=== PATIENT | female | born 1985 | race American Indian/Alaskan Native ===

== ENCOUNTER 2018-01-16 20:04 | Observation (INO) | payer BC, OTHER ==
--- NOTE | 2018-01-16 21:11 | ED PDOC ---
Arrival/HPI - General Chief Complaint: Dizziness/Lightheaded Time Seen by Provider: 01/16/18 20:28 Historian: Patient - History of Present Illness Narrative History of Present Illness (Text): 01/16/18 21:05 A 32 year old female, whose past medical history includes anxiety, presents to the emergency department with a complaint of cramping sensation in her hands and joints this evening. The patient states that she was not sure if she was having a panic attack. The patient notes that she has been loosing weight over the past year. She is currently not on any medication and denies drug or alcohol use. She notes that she has not seen her PMD regarding her symptoms. the patient denies fever, chills, headache, dizziness, chest pain, shortness of breath, nausea, vomiting, diarrhea, abdominal pain, back pain, neck pain, or any other complaint. Time/Duration: Prior to Arrival Symptom Onset: Sudden Symptom Course: Improving Activities at Onset: Rest, Light Context: Home Past Medical History - Provider Review Nursing Documentation Reviewed: Yes - Infectious Disease Hx of Infectious Diseases: None - Past Medical History Past Medical History: No Previous - Cardiac Hx Cardiac Disorders: No - Pulmonary Hx Respiratory Disorders: No - Neurological Hx Neurological Disorder: No - HEENT Hx HEENT Disorder: No - Renal Hx Renal Disorder: No - Endocrine/Metabolic Hx Endocrine Disorders: No - Hematological/Oncological Hx Blood Disorders: No - Integumentary Hx Dermatological Disorder: No - Musculoskeletal/Rheumatological Hx Musculoskeletal Disorders: No - Gastrointestinal Hx Gastrointestinal Disorders: No - Genitourinary/Gynecological Hx Genitourinary Disorders: No - Psychiatric Hx Psychophysiologic Disorder: Yes Hx Anxiety: Yes Hx Substance Use: No - Past Surgical History Past Surgical History: No Previous - Surgical History Other/Comment: Fallopian tubes removed - Anesthesia Hx Anesthesia: Yes Hx Anesthesia Reactions: No Hx Malignant Hyperthermia: No - Suicidal Assessment Feels Threatened In Home Enviroment: No Family/Social History - Physician Review Nursing Documentation Reviewed: Yes Family/Social History: No Known Family HX Smoking Status: Never Smoked Hx Alcohol Use: Yes Hx Substance Use: No Hx Substance Use Treatment: No Allergies/Home Meds Allergies/Adverse Reactions: Allergies No Known Allergies Allergy (Verified 01/16/18 20:13) Home Medications: Home Meds Medication Instructions Recorded Confirmed No Known Home Med 01/16/18 01/16/18 Review of Systems - Physician Review All systems were reviewed & negative as marked: Yes - Review of Systems Constitutional: absent: Fevers, Night Sweats Respiratory: absent: SOB Cardiovascular: absent: Chest Pain Gastrointestinal: absent: Abdominal Pain, Diarrhea, Nausea, Vomiting Musculoskeletal: Other (Cramping sensation of hands). absent: Back Pain, Neck Pain Neurological: absent: Headache Psychiatric: Anxiety Physical Exam Vital Signs Reviewed: Yes Vital Signs Temp Pulse Resp BP Pulse Ox 01/16/18 20:11 97.8 F 102 H 18 142/99 H 98 Temperature: Afebrile Blood Pressure: Hypertensive Pulse: Tachycardic Respiratory Rate: Normal Appearance: Positive for: Well-Appearing, Non-Toxic, Comfortable Pain Distress: None Mental Status: Positive for: Alert and Oriented X 3, other (Anxious) - Systems Exam Head: Present: Atraumatic, Normocephalic Pupils: Present: PERRL Extroacular Muscles: Present: EOMI Conjunctiva: Present: Normal Mouth: Present: Moist Mucous Membranes Neck: Present: Normal Range of Motion Respiratory/Chest: Present: Clear to Auscultation, Good Air Exchange. No: Respiratory Distress, Accessory Muscle Use Cardiovascular: Present: Regular Rate and Rhythm, Normal S1, S2. No: Murmurs Abdomen: No: Tenderness, Distention, Peritoneal Signs Back: Present: Normal Inspection Upper Extremity: Present: Normal Inspection. No: Cyanosis, Edema Lower Extremity: Present: Normal Inspection. No: Edema Neurological: Present: GCS=15, CN II-XII Intact, Speech Normal Skin: Present: Warm, Dry, Normal Color. No: Rashes Psychiatric: Present: Alert, Oriented x 3, Normal Insight, Normal Concentration , Anxious Medical Decision Making ED Course and Treatment: 01/16/18 21:12 Impression: A 32 year old female presents to the emergency department with a complaint of cramping sensation in her hands. Plan: -- Labs -- Reassess and disposition Progress Notes: 01/16/18 22:14: Patient's chemistry shows a Potassium of 2.6 01/16/18 22:39: Case discussed with medical claims analyst and Dr. Ellington who accepts patient to the hospitalist's service. 01/17/18 00:18 EKG: Ordered, reviewed, and independently interpreted the EKG. Rate : 109 BPM Rhythm : Sinus Tachycardia Interpretation : No acute changes - Lab Interpretations Lab Results: 01/16/18 21:27 01/16/18 22:10 Lab Results 01/16/18 22:10: Alcohol, Quantitative < 10 01/16/18 22:10: Phosphorus 2.5, Magnesium 1.1 L 01/16/18 22:10: Potassium 2.8 L* 01/16/18 21:27: WBC 7.1, RBC 3.07 L, Hgb 11.1 L, Hct 31.7 L, MCV 103.3, MCH 36.2 H, MCHC 35.0, RDW 16.9 H, Plt Count 399, MPV 9.3 01/16/18 21:27: Sodium 138, Potassium 2.6 L*, Chloride 99, Carbon Dioxide 28, Anion Gap 14, BUN 6 L, Creatinine 0.5 L, Est GFR ( Amer) > 60, Est GFR ( Non-Af Amer) > 60, Random Glucose 103, Calcium 7.5 L, Total Bilirubin 0.7, AST 306 H, ALT 63 H, Alkaline Phosphatase 98, Total Protein 7.2, Albumin 4.1, Globulin 3.1, Albumin/Globulin Ratio 1.3 I have reviewed the lab results: Yes - RAD Interpretation Radiology Orders: 01/16/18 22:08 CHEST PORTABLE [RAD] Stat - Medication Orders Current Medication Orders: Magnesium 2 gm/50 ml NS (Magnesium Sulfate 2 Gm/50 Ml Ns) 2 gm in 50 mls @ 50 mls/hr IVPB ONCE ONE Stop: 01/17/18 00:47 Discontinued Medications Alprazolam (Xanax) 0.25 mg PO ONCE ONE Stop: 01/16/18 21:17 Last Admin: 01/16/18 21:54 Dose: 0.25 mg Calcium Gluconate (Calcium Gluconate Iv) 1,000 mg IVP ONCE ONE Stop: 01/16/18 22:46 Last Admin: 01/16/18 23:21 Dose: 1,000 mg IVP Administration Document 01/16/18 23:21 SS (Rec: 01/16/18 23:21 SS [id number]) Charges for Administration # of IVP Administrations 1 Potassium Chloride (Potassium Chloride 20 Meq/100 Ml) 100 mls @ 50 mls/hr IV ONCE ONE Stop: 01/17/18 00:07 Last Admin: 07/24/18 23:46 Dose: 50 mls/hr eMAR Start Stop Document 01/16/18 23:46 SS (Rec: 01/16/18 23:46 SS [id number]) Intravenous Solution Start Date 01/16/18 Start Time 23:46 Potassium Chloride (K-Dur 20 Meq Er Tab) 40 meq PO STAT STA Stop: 01/16/18 22:09 Last Admin: 01/16/18 22:25 Dose: 40 meq - Scribe Statement The provider has reviewed the documentation as recorded by the Nathanibe Jeannette Bro Provider Scribe Attestation: All medical record entries made by the Scribe were at my direction and personally dictated by me. I have reviewed the chart and agree that the record accurately reflects my personal performance of the history, physical exam, medical decision making, and the department course for this patient. I have also personally directed, reviewed, and agree with the discharge instructions and disposition. Disposition/Present on Arrival - Present on Arrival Any Indicators Present on Arrival: No History of DVT/PE: No History of Uncontrolled Diabetes: No Urinary Catheter: No History of Decub. Ulcer: No History Surgical Site Infection Following: None - Disposition Have Diagnosis and Disposition been Completed?: Yes Diagnosis: Hypokalemia, Weight loss Disposition: HOSPITALIZED Disposition Time: 22:48 Patient Problems: Current Active Problems Problem Status Onset Hypokalemia Acute Weight loss Acute Condition: STABLE
[2018-01-16 21:43] LABS: HEMOGLOBIN 11.1 g/dL (12.0-16.0); MEAN CELL VOLUME 103.3 fl (80.0-105.0); MEAN CORPUSCULAR HEMOGLOBIN 36.2 pg (25.0-35.0); MEAN PLATELET VOLUME 9.3 fl (7.0-11.0); RBC 3.07 10^6/uL (3.5-6.1); RED CELL DISTRIBUTION WIDTH 16.9 % (11.5-14.5); WHITE BLOOD COUNT 7.1 10^3/ul (4.5-11.0)
[2018-01-16 22:06] LABS: ALB/GLOB RATIO 1.3 (1.1-1.8); ALBUMIN 4.1 g/dL (3.0-4.8); ALT/SGPT 63 U/L (7-56); AST/SGOT 306 U/L (14-36); BLOOD UREA NITROGEN 6 mg/dL (7-21); CALCIUM 7.5 mg/dL (8.4-10.5); GFR AFRICAN-AMERICAN > 60; GFR NON-AFRICAN AMERICAN > 60
[2018-01-16] MEDS ORDERED: Potassium Chloride 20 mEq ER Tab PO STA (22:08)
[2018-01-16] MEDS ORDERED: Potassium Chloride 20 mEq 100 ML IV ONE (22:08)
[2018-01-16 23:32] LABS: URINE BILIRUBIN NEGATIVE (NEGATIVE); URINE BLOOD NEGATIVE (NEGATIVE); URINE GLUCOSE (UA) NEGATIVE (NEGATIVE); URINE LEUKOCYTE ESTERASE NEGATIVE Leu/uL (NEGATIVE); URINE PROTEIN 100 mg/dL (<30 mg/dL)
[2018-01-16 23:45] LABS: URINE APPEARANCE CLEAR (CLEAR); URINE COLOR YELLOW (YELLOW)
[2018-01-16] MEDS ORDERED: Magnesium 2 gm/50 ml NS 2 GM/50 ML BAG IVPB ONE (23:48)
[2018-01-17] LABS: BARBITURATES, UR NEGATIVE (NEGATIVE); BENZODIAZEPINES, UR NEGATIVE (NEGATIVE); OPIATES, UR NEGATIVE (NEGATIVE); PHENCYCLIDINE, UR NEGATIVE (NEGATIVE)
[2018-01-17 00:08] LABS: URINE RBC NEGATIVE /hpf (0-2); URINE WBC NEGATIVE /hpf (0-6)
[2018-01-17 00:10] LABS: URINE BACTERIA FEW (NEG); URINE HYALINE CAST 0 - 2 /hpf
[2018-01-17 01:47] VITALS: BMI 74717.1
--- NOTE | 2018-01-17 04:49 | CP.PCM.HP ---
<Jossue Rain - Last Filed: 01/17/18 06:01> History of Present Illness - History of Present Illness History of Present Illness: Jossue Rain DO PGY1 Internal Medicine Communication Professor - Hospital H&P CC: Panic attack w/ hand contracture; Lab abnormalities; Weight Loss 32F no significant PMH presents w/ presents to [facility] [place] with chief complaint of BL contractions of hands following panic attack; found to have CMP abnormalities on evaluation as well as 65LB wt loss over 1yr. Pt. reported having panic attack w/ SOB, hyperventilation & diaphoresis today and subsequently lost ability to open her hands bilaterally. Contractures lasted 15 min resolved prior to EMS arrival. Pt. states she has had panic attacks before however, she has not had any physical contracture; often controls her panic attacks w/o medication. Upon arrival to ED pt was found to be hypokalemic and hypocalcemic. Upon ROS pt. reported she has had some wt loss from 198-166 over the past year. She reports it was initially intentional however now it is not. She reports months of loose stools; non tarry w/o hematochezia. She does report irregular period over the past 4 years s/p D&C after miscarriage. Denies any hx of DVT or PE, denies any use of control, denies any myalgias, fever, chills, chest pain, palpitations, abd pain, N/V/C, dysuria/hematuria. Remainder of 12 system ROS was otherwise negative. PMD: none Home Rx: none PMH: none PSH: D&C 2013 Social: Drinks 1 mixed drink / daily; Nonsmoker; Denies illicit drug use In ED pt. repleated K+ w/ 60meq EKG wnl given 0.25 xanax x1 In and out of tachycardia in 100-1110 Present on Admission - Present on Admission Any Indicators Present on Admission: No Review of Systems - Review of Systems All systems: reviewed and no additional remarkable complaints except Review of Systems: as per HPI Past Patient History - Infectious Disease Hx of Infectious Diseases: None - Past Social History Smoking Status: Never Smoked - CARDIAC Hx Cardiac Disorders: No - PULMONARY Hx Respiratory Disorders: No - NEUROLOGICAL Hx Neurological Disorder: No - HEENT Hx HEENT Problems: No - RENAL Hx Chronic Kidney Disease: No - ENDOCRINE/METABOLIC Hx Endocrine Disorders: No - HEMATOLOGICAL/ONCOLOGICAL Hx Blood Disorders: No - INTEGUMENTARY Hx Dermatological Problems: No - MUSCULOSKELETAL/RHEUMATOLOGICAL Hx Falls: No - GASTROINTESTINAL Hx Gastrointestinal Disorders: No - GENITOURINARY/GYNECOLOGICAL Hx Genitourinary Disorders: No - PSYCHIATRIC Hx Anxiety: Yes Hx Substance Use: No - SURGICAL HISTORY Other/Comment: fallopian tubes removed - ANESTHESIA Hx Anesthesia: Yes Hx Anesthesia Reactions: No Hx Malignant Hyperthermia: No Meds Allergies/Adverse Reactions: Allergies Allergy/AdvReac Type Severity Reaction Status Date / Time No Known Allergies Allergy Verified 01/16/18 20:13 Physical Exam - Constitutional Appears: Well, Non-toxic, No Acute Distress - Head Exam Head Exam: ATRAUMATIC, NORMOCEPHALIC - Eye Exam Eye Exam: EOMI, PERRL - ENT Exam ENT Exam: Mucous Membranes Moist - Neck Exam Neck exam: Positive for: Normal Inspection - Respiratory Exam Respiratory Exam: Clear to Auscultation Bilateral, Rhonchi, Wheezes, NORMAL BREATHING PATTERN. absent: Respiratory Distress - Cardiovascular Exam Cardiovascular Exam: RRR, +S1, +S2 - GI/Abdominal Exam GI & Abdominal Exam: Normal Bowel Sounds, Soft. absent: Tenderness - Extremities Exam Extremities exam: Positive for: pedal pulses present. Negative for: pedal edema - Back Exam Back exam: absent: CVA tenderness (L), CVA tenderness (R) - Neurological Exam Neurological exam: Alert, CN II-XII Intact, Oriented x3 - Psychiatric Exam Psychiatric exam: Normal Affect, Normal Mood - Skin Skin Exam: Dry, Intact, Normal Color, Warm Results - Vital Signs Recent Vital Signs: Last Vital Signs Temp 98.9 F 01/17/18 01:39 Pulse 110 H 01/17/18 01:49 Resp 19 01/17/18 01:39 BP 134/87 01/17/18 01:39 Pulse Ox 98 01/17/18 00:20 - Labs Result Diagrams: 01/16/18 21:27 01/16/18 22:10 Labs: Laboratory Results - last 24 hr 01/16/18 01/16/18 23:15 23:15 Urine Color Yellow Urine Appearance Clear Urine pH 7.0 Ur Specific [place] 1.010 Urine Protein 100 H Urine Glucose (UA) Negative Urine Ketones Negative Urine Blood Negative Urine Nitrate Negative Urine Bilirubin Negative Urine Urobilinogen 1.0 H Ur Leukocyte Esterase Negative Urine RBC Negative Urine WBC Negative Ur Epithelial Cells 4 - 5 Urine Bacteria Few Hyaline Casts 0 - 2 Urine Other Mucus Urine Opiates Screen Negative Urine Methadone Screen Negative Ur Barbiturates Screen Negative Ur Phencyclidine Scrn Negative Ur Amphetamines Screen Negative U Benzodiazepines Scrn Negative U Oth Cocaine Metabols Negative U Cannabinoids Screen Negative Assessment & Plan - Assessment and Plan (Free Text) Assessment: 32F no significant PMH presents w/ chief complaint of BL contractions of hands following panic attack; found to have CMP abnormalities on evaluation as well as 65LB wt loss over 1yr. Hypokalemia 2.6 on admission given 60 meq in ED Reassess in AM Magnesium low as well Hypomagnesia 1.1 on admission Repleated w/ 2gm IVPB Reassess in AM Hypocalcemia 7.5 on admission Phos level wnl Ca Gluconate 1gm given Reassess in AM Consider hypocalcemia workup if unimproving (PTH, VitD, Renal function) Normocytic anemia Hb 11.1, MCV 103; upper limit normal Follow up Fe, TIBC, B12 level, Folate, Reticulocyte Count, Asymptomatic, hemodynamically stable, no complaints at this time Transaminitis AST:ALT 306:63; Social Hx + for daily EtOH use Abd U/s pending Hepatitis panel pending Hx EtOH Abuse CIWA Ativan 1mg Q6H Started Thiamine, Folate, Multivit Unintentional weight loss: HIV Fecal Leukocyte TSH GI/DVT PPX - Protonix / SCD Pt. seen, examined, and discussed w/ attending physician Dr. Chandana Rain DO - PGY1 Internal Medicine Communication Professor - Date & Time Date: 01/17/18 Time: 05:05 <Jahaira Ellington - Last Filed: 01/17/18 06:36> Results - Vital Signs Recent Vital Signs: Last Vital Signs Temp 98.9 F 01/17/18 01:39 Pulse 97 H 01/17/18 06:00 Resp 19 01/17/18 01:39 BP 134/87 01/17/18 01:39 Pulse Ox 98 01/17/18 00:20 - Labs Result Diagrams: 01/16/18 21:27 01/16/18 22:10 Labs: Laboratory Results - last 24 hr 01/16/18 01/16/18 23:15 23:15 Urine Color Yellow Urine Appearance Clear Urine pH 7.0 Ur Specific [place] 1.010 Urine Protein 100 H Urine Glucose (UA) Negative Urine Ketones Negative Urine Blood Negative Urine Nitrate Negative Urine Bilirubin Negative Urine Urobilinogen 1.0 H Ur Leukocyte Esterase Negative Urine RBC Negative Urine WBC Negative Ur Epithelial Cells 4 - 5 Urine Bacteria Few Hyaline Casts 0 - 2 Urine Other Mucus Urine Opiates Screen Negative Urine Methadone Screen Negative Ur Barbiturates Screen Negative Ur Phencyclidine Scrn Negative Ur Amphetamines Screen Negative U Benzodiazepines Scrn Negative U Oth Cocaine Metabols Negative U Cannabinoids Screen Negative Attending/Attestation - Attestation I have personally seen and examined this patient.: Yes I have fully participated in the care of the patient.: Yes I have reviewed all pertinent clinical information: Yes Notes (Text): 01/17/18 06:32 On Auscultation, pt's lungs are clear..No wheezes or rhonchi heard as noted in the physical exam. Agree with the rest of the documentation and plan of care.
[2018-01-17] MEDS: Pantoprazole 40 mg EC Tab PO SCH (06:13)
[2018-01-17 06:36] LABS: BASO # 0.01 K/mm3 (0.0-2.0); BASO % 0.1 % (0.0-3.0); EOS # 0.1 (0.0-0.7); EOS % 1.2 % (1.5-5.0); GRAN # 3.52 (1.4-6.5); GRAN % 52.7 % (50.0-68.0); HEMOGLOBIN 10.2 g/dL (12.0-16.0); LYMPH # 2.7 (1.2-3.4); LYMPH % 40.5 % (22.0-35.0); MEAN CELL VOLUME 104.9 fl (80.0-105.0); MEAN CORPUSCULAR HEMOGLOBIN 35.5 pg (25.0-35.0); MEAN CORPUSCULAR HGB CONC 33.9 g/dl (31.0-37.0); MEAN PLATELET VOLUME 9.3 fl (7.0-11.0); MONO # 0.4 (0.1-0.6); MONO % 5.5 % (1.0-6.0); PLATELET COUNT 366 10^3/uL (120.0-450.0); RBC 2.87 10^6/uL (3.5-6.1); RED CELL DISTRIBUTION WIDTH 16.8 % (11.5-14.5); WHITE BLOOD COUNT 6.7 10^3/ul (4.5-11.0)
[2018-01-17 06:45] LABS: IRON 164 ug/dL (45-180)
[2018-01-17 06:55] LABS: % IRON SATURATION 77 % (20-55); TOTAL IRON BINDING CAPACITY 214 ug/dL (265-497)
[2018-01-17 06:57] LABS: ALB/GLOB RATIO 1.1 (1.1-1.8); ALBUMIN 3.4 g/dL (3.0-4.8); ALT/SGPT 58 U/L (7-56); AST/SGOT 253 U/L (14-36); BLOOD UREA NITROGEN 4 mg/dL (7-21); GFR AFRICAN-AMERICAN > 60; GFR NON-AFRICAN AMERICAN > 60
[2018-01-17] MEDS ORDERED: Potassium Chloride 20 mEq ER Tab PO STA ×2 (07:13→11:19)
[2018-01-17] MEDS ORDERED: Magnesium 2 gm/50 ml NS 2 GM/50 ML BAG IVPB ONE (07:13)
--- NOTE | 2018-01-17 09:47 | RAD ---
Date of service: 01/16/2018 HISTORY: medical clearance COMPARISON: No prior. FINDINGS: LUNGS: No active pulmonary disease. PLEURA: No significant pleural effusion identified, no pneumothorax apparent. CARDIOVASCULAR: Normal. OSSEOUS STRUCTURES: No significant abnormalities. VISUALIZED UPPER ABDOMEN: Normal. OTHER FINDINGS: None. IMPRESSION: No active disease.
[2018-01-17] MEDS: Multivitamin With Minerals Tab PO SCH (11:20)
--- NOTE | 2018-01-17 11:29 | US ---
Date of service: 01/17/2018 HISTORY: weight loss, loss of appetite COMPARISON: None. TECHNIQUE: Sonographic evaluation of the abdomen. FINDINGS: LIVER: Measures 16.3 cm. Patent portal vein. Portal venous flow: Hepatopetal. Unremarkable echogenicity of the liver parenchyma. No mass. No intrahepatic bile duct dilatation. GALLBLADDER: Sludge identified layering in the gallbladder. No gallstones. COMMON BILE DUCT: Measures 4.2 mm. No stones. No dilatation. PANCREAS: Unremarkable as visualized. No mass. No ductal dilatation. RIGHT KIDNEY: Measures 4.3 x 9.7cm. Normal echogenicity. No calculus, mass, or hydronephrosis. LEFT KIDNEY: Measures 6.2 x 10.2 No significant or acute findings to account for/ related to the clinical presentation.cm. Normal echogenicity. No calculus, mass, or hydronephrosis. SPLEEN: Normal in size and contour. No mass. AORTA: No aneurysmal dilatation. IVC: Unremarkable. OTHER FINDINGS: None. IMPRESSION: No significant or acute findings to account for/ related to the clinical presentation. Additional benign and/or incidental findings described above.
[2018-01-17 12:15] LABS: HEPATITIS B SURFACE AG Negative (NEGATIVE)
[2018-01-17 12:21] LABS: HEPATITIS A IGM NEGATIVE (NEGATIVE); HEPATITIS B CORE AB NEGATIVE (NEGATIVE)
[2018-01-17 12:33] LABS: HEPATITIS C ANTIBODY NEGATIVE (NEGATIVE)
[2018-01-17 12:53] LABS: FOLATE 8.5 ng/mL
[2018-01-17 16:42] VITALS: RESP 20
--- NOTE | 2018-01-17 18:45 | CARD ---
APPROVED REPORT Date of service: 01/16/2018 EKG Measurement Heart [id number] <Conclusion> Sinus tachycardia Otherwise normal ECG
[2018-01-17 23:54] VITALS: O2SAT 100
[2018-01-18] MEDS: Pantoprazole 40 mg EC Tab PO SCH (05:23)
[2018-01-18 07:00] LABS: BASO # 0.01 K/mm3 (0.0-2.0); BASO % 0.2 % (0.0-3.0); EOS # 0.3 (0.0-0.7); EOS % 4.7 % (1.5-5.0); GRAN # 2.38 (1.4-6.5); GRAN % 41.8 % (50.0-68.0); LYMPH # 2.7 (1.2-3.4); LYMPH % 47.2 % (22.0-35.0); MEAN CELL VOLUME 106.8 fl (80.0-105.0); MEAN CORPUSCULAR HEMOGLOBIN 35.9 pg (25.0-35.0); MEAN CORPUSCULAR HGB CONC 33.6 g/dl (31.0-37.0); MEAN PLATELET VOLUME 9.4 fl (7.0-11.0); MONO # 0.4 (0.1-0.6); MONO % 6.1 % (1.0-6.0); RBC 2.51 10^6/uL (3.5-6.1); RED CELL DISTRIBUTION WIDTH 17.2 % (11.5-14.5); WHITE BLOOD COUNT 5.7 10^3/ul (4.5-11.0)
[2018-01-18] MEDS ORDERED: Ergocalciferol 50,000 Intl Units Cap PO SCH (07:00)
[2018-01-18 07:20] LABS: ALB/GLOB RATIO 1.1 (1.1-1.8); ALT/SGPT 42 U/L (7-56); AST/SGOT 95 U/L (14-36); BLOOD UREA NITROGEN 4 mg/dL (7-21); CALCIUM 7.5 mg/dL (8.4-10.5); GFR AFRICAN-AMERICAN > 60; GFR NON-AFRICAN AMERICAN > 60
[2018-01-18] MEDS: Multivitamin With Minerals Tab PO SCH (08:31)
--- NOTE | 2018-01-18 09:26 | CON ---
DATE: 01/18/2018 HISTORY OF PRESENT ILLNESS: Shortly, the patient is 32-year-old female with reported history of anxiety. The patient had never been admitted to the Psychiatric Inpatient Unit, never been on psychotropic medications. Denied history of suicidal attempt. The patient came to the hospital looking for help for exacerbation of anxiety. This race and sports book writer got involved into the patient's care because of anxiety and depression. The patient was seen and examined. The patient presented with good personal hygiene, observed eating with good appetite. The patient seems to be a good and reliable historian. The patient said that 6 months ago, she lost her job. The patient also lost her grandmother 2 weeks ago. The patient reported that usually she is able to cope with the stress by relaxation technique and breathing exercises which she learned from [facility] therapist whom she attended in her early 20s. The patient said that it was helpful, but this time she started to have numbness and tingling in her upper extremities that is why she came to the hospital. The patient reported that she feels depressed because she has nothing to do and she feels alone in her house and she is thinking about her losses in her life, a lot of guilt, but the patient adamantly denied any thoughts of killing herself or others. Denied hearing voices, denied seeing things. The patient reported that she was coping with the stress with alcohol. Initially it was 1 glass of wine a day, right now 1 glass of vodka a day. The patient acknowledged that this is not healthy and her depression is getting worse because of that. The patient denied any withdrawal symptoms during the interview. Vital signs are stable. Temperature 98.1, pulse is 90, blood pressure 121/81, respirations 20, oxygen saturation is 100. Medications reviewed. The patient is on Tylenol, calcium carbonate, vitamin B12, Drisdol, folic acid, Ativan 1 mg IV push every 6 hours p.r.n., multivitamin, Zofran, Protonix and thiamine. Labs reviewed. Hemoglobin and hematocrit 9 and 26.8. Chemistry reviewed. The patient has potassium 3.4, but today is 4. AST and ALT are trending down. Urinalysis showed no infection. Toxicology negative and serology negative. MENTAL STATUS EXAMINATION: The patient presented to be alert and oriented, pleasant, cooperative, good hygiene, good eye contact. Mood described as anxious and depressed, but affect was reactive, mood congruent. Thought process was coherent and goal directed. Thought content, the patient denied visual, auditory or tactile hallucinations. Denied paranoid ideations. Denied thoughts of harming herself or others. Denied intents or plan. Insight and judgment seems to be fair. Impulses are well controlled. IMPRESSION: Rule out panic disorder, rule out adjustment disorder with depressed and anxious mood. PLAN: We will start Vistaril as needed for anxiety. The patient expressed her interest to go back to [facility]. The patient also might benefit from relaxation technique and breathing exercises. Risks, benefits and alternatives of the Vistaril discussed with the patient. The patient is not suicidal. The patient is not psychotic. The patient pose no imminent danger to self or others. Should you have any questions, give me a call back. Thank you very much for letting me participate in the care of your patient. This race and sports book writer will sign off. Sirisha Nix MD
[2018-01-18 11:58] VITALS: BP 132/98; PULSE 85; TEMP 98.6
--- NOTE | 2018-01-18 16:43 | CP.PCM.DIS ---
<Angelica Brand - Last Filed: 01/18/18 16:43> Provider - Provider Date of Admission: 01/16/18 22:46 Attending physician: Hamlet De La Cruz MD Primary care physician: NO FAMILY PROVIDER Consults: Psych: Dr. Grimm Time Spent in preparation of Discharge (in minutes): 45 Diagnosis - Discharge Diagnosis (1) Hypokalemia Status: Resolved Priority: Medium (2) Weight loss Status: Acute (3) Hypocalcemia Status: Acute Priority: Medium (4) Vitamin D deficiency Status: Chronic Priority: Medium (5) Anxiety Status: Acute Priority: Medium Hospital Course - Lab Results Lab Results: Most Recent Lab Values WBC 5.7 10^3/ul (4.5-11.0) 01/18/18 06:00 RBC 2.51 10^6/uL (3.5-6.1) L 01/18/18 06:00 Hgb 9.0 g/dL (12.0-16.0) L 01/18/18 06:00 Hct 26.8 % (36.0-48.0) L 01/18/18 06:00 MCV 106.8 fl (80.0-105.0) H 01/18/18 06:00 MCH 35.9 pg (25.0-35.0) H 01/18/18 06:00 MCHC 33.6 g/dl (31.0-37.0) 01/18/18 06:00 RDW 17.2 % (11.5-14.5) H 01/18/18 06:00 Plt Count 309 10^3/uL (120.0-450.0) 01/18/18 06:00 MPV 9.4 fl (7.0-11.0) 01/18/18 06:00 Gran % 41.8 % (50.0-68.0) L 01/18/18 06:00 Lymph % (Auto) 47.2 % (22.0-35.0) H 01/18/18 06:00 [place] % (Auto) 6.1 % (1.0-6.0) H 01/18/18 06:00 Eos % (Auto) 4.7 % (1.5-5.0) 01/18/18 06:00 Baso % (Auto) 0.2 % (0.0-3.0) 01/18/18 06:00 Gran # 2.38 (1.4-6.5) 01/18/18 06:00 Lymph # (Auto) 2.7 (1.2-3.4) 01/18/18 06:00 [place] # (Auto) 0.4 (0.1-0.6) 01/18/18 06:00 Eos # (Auto) 0.3 (0.0-0.7) 01/18/18 06:00 Baso # (Auto) 0.01 K/mm3 (0.0-2.0) 01/18/18 06:00 Retic Count 0.67 % (0.5-1.5) 01/17/18 06:15 Sodium 139 mmol/L (132-148) 01/18/18 06:00 Potassium 4.0 mmol/L (3.6-5.0) 01/18/18 06:00 Chloride 107 mmol/L (98-107) 01/18/18 06:00 Carbon Dioxide 25 mmol/L (21-33) 01/18/18 06:00 Anion Gap 10 (10-20) 01/18/18 06:00 BUN 4 mg/dL (7-21) L 01/18/18 06:00 Creatinine 0.5 mg/dl (0.7-1.2) L 01/18/18 06:00 Est GFR ( Amer) > 60 01/18/18 06:00 Est GFR (Non-Af Amer) > 60 01/18/18 06:00 Random Glucose 92 mg/dL (70-110) 01/18/18 06:00 Calcium 7.5 mg/dL (8.4-10.5) L 01/18/18 06:00 Phosphorus 2.5 mg/dL (2.5-4.5) 01/16/18 22:10 Magnesium 1.7 mg/dL (1.7-2.2) 01/18/18 06:00 Iron 164 ug/dL (45-180) 01/17/18 06:15 TIBC 214 ug/dL (265-497) L 01/17/18 06:15 % Saturation 77 % (20-55) H 01/17/18 06:15 Total Bilirubin 0.5 mg/dL (0.2-1.3) 01/18/18 06:00 AST 95 U/L (14-36) H D 01/18/18 06:00 ALT 42 U/L (7-56) 01/18/18 06:00 Alkaline Phosphatase 69 U/L (38-126) 01/18/18 06:00 Total Protein 5.9 g/dL (5.8-8.3) 01/18/18 06:00 Albumin 3.0 g/dL (3.0-4.8) 01/18/18 06:00 Globulin 2.8 gm/dL 01/18/18 06:00 Albumin/Globulin Ratio 1.1 (1.1-1.8) 01/18/18 06:00 Vitamin B12 214 pg/mL (239-931) L 01/17/18 06:15 25-OH Vitamin D Total < 12.8 NG/ML (30.0-100.0) L 01/17/18 13:00 Folate 8.5 ng/mL 01/17/18 06:15 TSH 3rd Generation 4.60 mIU/mL (0.46-4.68) 01/17/18 06:15 Urine Color Yellow (YELLOW) 01/16/18 23:15 Urine Appearance Clear (CLEAR) 01/16/18 23:15 Urine pH 7.0 (4.7-8.0) 01/16/18 23:15 Ur Specific Jessie 1.010 (1.005-1.035) 01/16/18 23:15 Urine Protein 100 mg/dL (<30 mg/dL) H 01/16/18 23:15 Urine Glucose (UA) Negative mg/dL (NEGATIVE) 01/16/18 23:15 Urine Ketones Negative mg/dL (NEGATIVE) 01/16/18 23:15 Urine Blood Negative (NEGATIVE) 01/16/18 23:15 Urine Nitrate Negative (NEGATIVE) 01/16/18 23:15 Urine Bilirubin Negative (NEGATIVE) 01/16/18 23:15 Urine Urobilinogen 1.0 E.U./dL (<1 E.U./dL) H 01/16/18 23:15 Ur Leukocyte Esterase Negative Sam/uL (NEGATIVE) 01/16/18 23:15 Urine RBC Negative /hpf (0-2) 01/16/18 23:15 Urine WBC Negative /hpf (0-6) 01/16/18 23:15 Ur Epithelial Cells 4 - 5 /hpf (0-5) 01/16/18 23:15 Urine Bacteria Few (NEG) 01/16/18 23:15 Hyaline Casts 0 - 2 /hpf 01/16/18 23:15 Urine Other Mucus 01/16/18 23:15 Urine Opiates Screen Negative (NEGATIVE) 01/16/18 23:15 Urine Methadone Screen Negative (NEGATIVE) 01/16/18 23:15 Ur Barbiturates Screen Negative (NEGATIVE) 01/16/18 23:15 Ur Phencyclidine Scrn Negative (NEGATIVE) 01/16/18 23:15 Ur Amphetamines Screen Negative (NEGATIVE) 01/16/18 23:15 U Benzodiazepines Scrn Negative (NEGATIVE) 01/16/18 23:15 U Oth Cocaine Metabols Negative (NEGATIVE) 01/16/18 23:15 U Cannabinoids Screen Negative (NEGATIVE) 01/16/18 23:15 Alcohol, Quantitative < 10 mg/dL (0-10) 01/16/18 22:10 Hepatitis A IgM Ab Negative (NEGATIVE) 01/17/18 06:15 Hep Bs Antigen Negative (NEGATIVE) 01/17/18 06:15 Hep B Core IgM Ab Negative (NEGATIVE) 01/17/18 06:15 Hepatitis C Antibody Negative (NEGATIVE) 01/17/18 06:15 HIV 1&2 Ag/Ab, 4th Gen Nonreactive (Nonreactive) 01/17/18 05:00 - Hospital Course Hospital Course: Angelica Brand D.O. PGY1 - Discharge Summary Hospital Course 32 [id number], whose past medical history includes anxiety, presents to the emergency department (ED) with a complaint of cramping sensation in her hands on the evening of 01/16/18. While in the ED, EKG was obtained and revealed sinus tachycardia, but without other abnormalities. The patient underwent chest x-ray, which was unremarkable. Labs were drawn, and CMP revealed hypokalemia, hypocalcemia, and hypomagnesia. Patient reports increased alcohol consumption. Patient was subsequently admitted for treatment of electrolyte imbalance and observation. Please see chart for full details. Patient was was treated with IVPB magnesium and potassium. Patient was also treated with calcium gluconate 1g. The patient was asymptomatic the following morning and was hemodynamically stable. CMP was obtained and revealed elevated liver enzymes. Morning labs including CBC revealed macrocytic anemia likely secondary to recent increase in alcohol consumption. Patient underwent abdominal ultrasound which was unremarkable for significant or acute findings to account for the patient's clinical presentation, per report. Patient was treated with thiamine supplement. Patient was placed on CIWA protocol as a precaution, as patient was asymptomatic. Furthermore, CMP also revealed mild hypokalcemia, which was corrected with oral potassium. Vitamin D and B12 levels were obtained and revealed vitamin D-deficiency, and vitamin B12 deficiency. The patient was given oral supplements for the aforementioned Vitamin deficiencies, and was discharged with meds-to-bed including the vitamins listed below. Of note, the patient was inquired about her diet, and patient revealed she binge -eats and admits to history of inducing herself to vomit. Patient says that she has been under a lot of stress lately due to losing her job recently and having a in her family. Patient admitted that she lost over 50lbs within the last year due to "not eating every day." Patient also has history of anxiety, thus Psychiatry was consulted. Patient was started on vistaril for her anxiety, and is to follow-up in outpatient clinic after discharge from the hospital, per psych recommendation. On day of discharge, the patient was asymptomatic and hemodynamically stable. Repeat CMP revealed that the liver enzymes improved. Patient otherwise denied numbness and/or tingling in lower extremities, muscle spasm in upper extremities , chest pain, or abdominal pain. Patient reported she was eager to go home back to her family. Patient was cleared for discharge by the medical team and senior solutions consultant. Patient is to follow-up with [facility] January 26 at 1:30PM. Patient is to continue all other medications as prescribed to her. Encouraged complete cessation of alcohol, and to increase consumption of well-balanced meals. Patient given written instructions that include All instructions explained to the patient in detail. Patient both understand and agree to all instructions. Please see full chart for more detail. Discharge Medications Calcium carbonate 600mg PO Daily Cyanocobalamin 1000mcg tab PO Daily Ergocalciferol 1 cap PO Q7D Folic Acid 1mg PO Daily Vistaril 25mg PO HS PRN Multivitamin 1 tab PO 0800 Thiamine 100mg PO Daily - Date & Time of H&P Date of H&P: 01/17/18 Time of H&P: 04:40 Discharge Exam - Head Exam Head Exam: ATRAUMATIC, NORMAL INSPECTION, NORMOCEPHALIC - Eye Exam Eye Exam: EOMI, Normal appearance Pupil Exam: NORMAL ACCOMODATION - ENT Exam ENT Exam: Mucous Membranes Moist, Normal Exam - Respiratory Exam Respiratory Exam: Clear to PA & Lateral, NORMAL BREATHING PATTERN, UNREMARKABLE. absent: Rales, Rhonchi, Stridor - Cardiovascular Exam Cardiovascular Exam: RRR. absent: Gallop, Rubs - GI/Abdominal Exam GI & Abdominal Exam: Normal Bowel Sounds, Soft, Unremarkable. absent: Distended , Firm, Rebound, Tenderness - Extremities Exam Extremities exam: full ROM, normal inspection - Back Exam Back exam: NORMAL INSPECTION - Neurological Exam Neurological exam: Alert, CN II-XII Intact, Normal Gait, Oriented x3, Reflexes Normal Additional comments: Absent: Chvostek's sign, Trousseau's sign. - Psychiatric Exam Psychiatric exam: Normal Affect, Normal Mood - Skin Skin Exam: Dry, Intact, Normal Color, Warm Discharge Plan - Discharge Medications Prescriptions: Calcium Carbonate [Caltrate] 600 mg PO DAILY #14 tab Cyanocobalamin [Vitamin B12 1000 mcg Tab] 1,000 mcg PO DAILY #14 tab Ergocalciferol [Drisdol 50,000 Intl Units Cap] 1 cap PO Q7D #6 cap Folic Acid 1 mg PO DAILY #14 tab hydrOXYzine Pamoate [Vistaril] 25 mg PO HS PRN #14 cap PRN Reason: Anxiety Multimineral/Multivitamin [Therapeutic-M Tab] 1 tab PO 0800 #14 tab Thiamine [Vitamin B1 Tab] 100 mg PO DAILY #14 tab - Follow Up Plan Condition: GOOD Disposition: HOME/ ROUTINE Patient education suggested?: Yes Instructions: Hypokalemia (DC), Anxiety, Adult (DC), Low Magnesium Level (DC), Hypokalemia (DC), Hypokalemia (GEN), Weight Management (DC), Weight Management ( GEN) Additional Instructions: Please follow up with [facility] scheduled on January 26 at 1: 30 pm. Take the medications as prescribed. Please stop drinking alcohol, and eat a well balanced meal. Please return if the symptoms returns. Referrals: [facility] [place] FAMILY PROVIDER,NO [Primary Care Provider] - <Hamlet De La Cruz - Last Filed: 01/19/18 07:56> Provider - Provider Date of Admission: 01/16/18 22:46 Attending physician: Hamlet De La Cruz MD Primary care physician: NO FAMILY PROVIDER Hospital Course - Lab Results Lab Results: Most Recent Lab Values WBC 5.7 10^3/ul (4.5-11.0) 01/18/18 06:00 RBC 2.51 10^6/uL (3.5-6.1) L 01/18/18 06:00 Hgb 9.0 g/dL (12.0-16.0) L 01/18/18 06:00 Hct 26.8 % (36.0-48.0) L 01/18/18 06:00 MCV 106.8 fl (80.0-105.0) H 01/18/18 06:00 MCH 35.9 pg (25.0-35.0) H 01/18/18 06:00 MCHC 33.6 g/dl (31.0-37.0) 01/18/18 06:00 RDW 17.2 % (11.5-14.5) H 01/18/18 06:00 Plt Count 309 10^3/uL (120.0-450.0) 01/18/18 06:00 MPV 9.4 fl (7.0-11.0) 01/18/18 06:00 Gran % 41.8 % (50.0-68.0) L 01/18/18 06:00 Lymph % (Auto) 47.2 % (22.0-35.0) H 01/18/18 06:00 [place] % (Auto) 6.1 % (1.0-6.0) H 01/18/18 06:00 Eos % (Auto) 4.7 % (1.5-5.0) 01/18/18 06:00 Baso % (Auto) 0.2 % (0.0-3.0) 01/18/18 06:00 Gran # 2.38 (1.4-6.5) 01/18/18 06:00 Lymph # (Auto) 2.7 (1.2-3.4) 01/18/18 06:00 [place] # (Auto) 0.4 (0.1-0.6) 01/18/18 06:00 Eos # (Auto) 0.3 (0.0-0.7) 01/18/18 06:00 Baso # (Auto) 0.01 K/mm3 (0.0-2.0) 01/18/18 06:00 Retic Count 0.67 % (0.5-1.5) 01/17/18 06:15 Sodium 139 mmol/L (132-148) 01/18/18 06:00 Potassium 4.0 mmol/L (3.6-5.0) 01/18/18 06:00 Chloride 107 mmol/L (98-107) 01/18/18 06:00 Carbon Dioxide 25 mmol/L (21-33) 01/18/18 06:00 Anion Gap 10 (10-20) 01/18/18 06:00 BUN 4 mg/dL (7-21) L 01/18/18 06:00 Creatinine 0.5 mg/dl (0.7-1.2) L 01/18/18 06:00 Est GFR ( Amer) > 60 01/18/18 06:00 Est GFR (Non-Af Amer) > 60 01/18/18 06:00 Random Glucose 92 mg/dL (70-110) 01/18/18 06:00 Calcium 7.5 mg/dL (8.4-10.5) L 01/18/18 06:00 Phosphorus 2.5 mg/dL (2.5-4.5) 01/16/18 22:10 Magnesium 1.7 mg/dL (1.7-2.2) 01/18/18 06:00 Iron 164 ug/dL (45-180) 01/17/18 06:15 TIBC 214 ug/dL (265-497) L 01/17/18 06:15 % Saturation 77 % (20-55) H 01/17/18 06:15 Total Bilirubin 0.5 mg/dL (0.2-1.3) 01/18/18 06:00 AST 95 U/L (14-36) H D 01/18/18 06:00 ALT 42 U/L (7-56) 01/18/18 06:00 Alkaline Phosphatase 69 U/L (38-126) 01/18/18 06:00 Total Protein 5.9 g/dL (5.8-8.3) 01/18/18 06:00 Albumin 3.0 g/dL (3.0-4.8) 01/18/18 06:00 Globulin 2.8 gm/dL 01/18/18 06:00 Albumin/Globulin Ratio 1.1 (1.1-1.8) 01/18/18 06:00 Vitamin B12 214 pg/mL (239-931) L 01/17/18 06:15 25-OH Vitamin D Total < 12.8 NG/ML (30.0-100.0) L 01/17/18 13:00 Folate 8.5 ng/mL 01/17/18 06:15 TSH 3rd Generation 4.60 mIU/mL (0.46-4.68) 01/17/18 06:15 Urine Color Yellow (YELLOW) 01/16/18 23:15 Urine Appearance Clear (CLEAR) 01/16/18 23:15 Urine pH 7.0 (4.7-8.0) 01/16/18 23:15 Ur Specific Jessie 1.010 (1.005-1.035) 01/16/18 23:15 Urine Protein 100 mg/dL (<30 mg/dL) H 01/16/18 23:15 Urine Glucose (UA) Negative mg/dL (NEGATIVE) 01/16/18 23:15 Urine Ketones Negative mg/dL (NEGATIVE) 01/16/18 23:15 Urine Blood Negative (NEGATIVE) 01/16/18 23:15 Urine Nitrate Negative (NEGATIVE) 01/16/18 23:15 Urine Bilirubin Negative (NEGATIVE) 01/16/18 23:15 Urine Urobilinogen 1.0 E.U./dL (<1 E.U./dL) H 01/16/18 23:15 Ur Leukocyte Esterase Negative Sam/uL (NEGATIVE) 01/16/18 23:15 Urine RBC Negative /hpf (0-2) 01/16/18 23:15 Urine WBC Negative /hpf (0-6) 01/16/18 23:15 Ur Epithelial Cells 4 - 5 /hpf (0-5) 01/16/18 23:15 Urine Bacteria Few (NEG) 01/16/18 23:15 Hyaline Casts 0 - 2 /hpf 01/16/18 23:15 Urine Other Mucus 01/16/18 23:15 Urine Opiates Screen Negative (NEGATIVE) 07/24/18 23:15 Urine Methadone Screen Negative (NEGATIVE) 01/16/18 23:15 Ur Barbiturates Screen Negative (NEGATIVE) 01/16/18 23:15 Ur Phencyclidine Scrn Negative (NEGATIVE) 01/16/18 23:15 Ur Amphetamines Screen Negative (NEGATIVE) 01/16/18 23:15 U Benzodiazepines Scrn Negative (NEGATIVE) 01/16/18 23:15 U Oth Cocaine Metabols Negative (NEGATIVE) 01/16/18 23:15 U Cannabinoids Screen Negative (NEGATIVE) 01/16/18 23:15 Alcohol, Quantitative < 10 mg/dL (0-10) 01/16/18 22:10 Hepatitis A IgM Ab Negative (NEGATIVE) 01/17/18 06:15 Hep Bs Antigen Negative (NEGATIVE) 01/17/18 06:15 Hep B Core IgM Ab Negative (NEGATIVE) 01/17/18 06:15 Hepatitis C Antibody Negative (NEGATIVE) 01/17/18 06:15 HIV 1&2 Ag/Ab, 4th Gen Nonreactive (Nonreactive) 01/17/18 05:00 Attending/Attestation - Attestation I have personally seen and examined this patient.: Yes I have fully participated in the care of the patient.: Yes I have reviewed all pertinent clinical information, including history, physical exam and plan: Yes Notes (Text): 01/19/18 07:53 Attending note; Patient seen and examined with resident. Patient is a 31-year-old female with past medical history of alcoholism is admitted after anxiety and numbness. Patient was found to be hypokalemic, hypomagnesemic and hypocalcemic. Patient with poor by mouth intake. History of binge drinking. Patient was treated with IV banana bag. Supplemented with IV potassium, calcium and magnesium. Started on vitamin D and calcium supplementation. Complete alcohol cessation is strongly advised. Anxiety; psychiatric evaluation appreciated. Vistaril prescription given. Elevated LFTs; secondary to alcohol abuse. Improving slowly. Abdominal ultrasound is normal. Hepatitis and HIV is negative. The diagnosis and treatment plan discussed with patient and patient's detail. Appointments made with [facility] [place] health [place]. 01/19/18 07:56
== END 2018-01-18 16:00 | disposition home or self-care (01) ==
LOC: ED 20:04 → ERH 22:46 → 2RSO 01-17 00:23
PROVIDERS: ADMIT Internal Medicine; ATTEND Internal Medicine
DX: E87.6 Hypokalemia (principal); E83.51 Hypocalcemia; E83.42 Hypomagnesemia; E55.9 Vitamin D deficiency, unspecified; E53.8 Deficiency of other specified B group vitamins; D53.9 Nutritional anemia, unspecified; F32.9 Major depressive disorder, single episode, unspecified; F41.0 Panic disorder [episodic paroxysmal anxiety]; M24.549 Contracture, unspecified hand; R63.4 Abnormal weight loss; F10.10 Alcohol abuse, uncomplicated
CPT/HCPCS: 36415; 71045; 76700; 80053; 80074; 80320; 80324; 80345; 80346; 80349; 80353; 80358; 80361; 81001; 82306; 82607; 82746; 83540; 83550; 83735; 83970; 83992; 84100; 84132; 84443; 85025; 85027; 85044; 87389; 93005; 96374; 99285; G0378; J0610; J3475; J3480